=== PATIENT | male | born 1965 | race Caucasian/White ===

== ENCOUNTER → 2017-09-27 | Outpatient (CLI) | payer OTHER ==
--- NOTE | 2017-09-27 08:20 | US ---
EXAMINATION TYPE: US abdomen complete DATE OF EXAM: 09/27/2017 COMPARISON: NONE CLINICAL HISTORY: R94.5 Abnormal liver function. Patient is diabetic EXAM MEASUREMENTS: Liver Length: 17.8 cm Gallbladder Wall: 0.2 cm CBD: 0.4 cm Spleen: 16.4 cm Right Kidney: 13.0 x 6.9 x 5.4 cm Left Kidney: 14.0 x 5.8 x 4.7 cm Pancreas: Obscured by bowel gas Liver: Coarse, heterogeneous echotexture. Measuring upper limits of normal. Hypoechoic area visualiz ed adjacent to the gallbladder measuring 1.7 x 1.2 x 1.4 cm. Portal vein appears enlarged. Gallbladder: wnl Evidence for sonographic Muller's sign: No CBD: wnl Spleen: Enlarged Right Kidney: No hydronephrosis or masses seen Left Kidney: No hydronephrosis or masses seen Upper IVC: wnl Abd Aorta: Proximal portion obscured by bowel gas, visualized portions wnl IMPRESSION: 1. Hepatosplenomegaly. 2. Fatty liver versus diffuse hepatocellular disease. Probable focal fatty sparing adjacent to the ga llbladder fossa.
== END | disposition home or self-care (01) ==
LOC: RADUSWWP 07:27
PROVIDERS: ATTEND Family Medicine
DX: R16.2 Hepatomegaly with splenomegaly, not elsewhere classified (principal)
CPT/HCPCS: 76700